=== PATIENT | female | born 1970 | race Caucasian/White ===

== ENCOUNTER 2021-03-10 20:22 | Emergency (ER) | payer BC, SELFPAY ==
--- NOTE | ~2021-03-10 | CT_ITS ---
EXAMINATION: CT brain wo [facility] EXAM DATE: 03/10/2021 20:31 INDICATION: Altered mental status. TECHNIQUE: Spiral CT of the head was performed without contrast. Axial, coronal and sagittal images were reviewed. The dose-length product (DLP) for this examination was 605.33 mGy-cm. The exposure w as tailored according to patient size, and iterative reconstruction (ASIR) was used as additional dos e reduction technique. There is no prior study for comparison. FINDINGS: Small old right periventricular, and right parietal and right occipital lobe infarctions. T here is no acute intraparenchymal hemorrhage. No evidence of intraparenchymal brain mass lesion. No evidence of acute infarction. There is no mass effect or midline shift. The ventricles are normal in size. There are no extra-axial collections. There are no acute calvarial fractures. Patient has had bilateral ocular lens surgery. Soft tissue is unremarkable. The visualized sinuses and mastoid air cells are well aerated. IMPRESSION: 1. No acute intracranial findings. 2. Small right-sided infarctions which are likely chronic As per stroke protocol, I called these results to emergency room, discussed with Ginger Lagos MD at 03/10/2021 20:37 CDT . Reviewed, dictated and finalized at location A. IMPRESSION: 1. No acute intracranial findings. 2. Small right-sided infarctions which are likely chronic As per stroke protocol, I called these results to emergency room, discussed wit h Ginger Lagos MD at 03/10/2021 20:37 CDT .
--- NOTE | ~2021-03-10 | XR_ITS ---
EXAMINATION: XR chest 1V portable EXAM DATE: 03/10/2021 20:49 INDICATION: Hypertension. Slurred speech. TECHNIQUE: Portable AP frontal chest x-ray was obtained. There is no prior study for comparison. FINDINGS: The lungs are clear. There are no pleural effusions. The cardiomediastinal silhouette is within normal limits. There is no pneumothorax suspected. The bones and soft tissues are unremarkab le. Cardiac monitoring device. IMPRESSION: No acute cardiopulmonary findings. Reviewed, dictated and finalized at location A.
--- NOTE | 2021-03-10 20:25 | ECG_ITS ---
Measurements Intervals [place] Rate: 73 P: 35 DC: 139 QRS: 44 QRSD: 109 T: 31 QT: 428 QTc: 473 Interpretive Statements SINUS RHYTHM BASELINE ARTIFACT- II, III, V6 NORMAL ECG Electronically Signed On 03-11-2021 7:02:50 CDT by Gagan Aguilar D.O.
[2021-03-10 20:35] VITALS: BP 221/107; PULSE 112; RESP 25; TEMP 36.6; O2SAT 100
--- NOTE | 2021-03-10 20:39 | ED.NEUROSD ---
HPI - Neuro Symptoms/Deficit General Chief Complaint: Neuro Symptoms/Deficit Stated Complaint: Right sided numbness/weakness, dizzy, prev CVA Time Seen by Provider: 03/10/21 20:33 Source: patient and family Mode of arrival: ambulatory Limitations: no limitations History of Present Illness HPI Narrative: 50-year-old with a history of multiple CVAs here with complaints of sudden onset of facial numbness associated with headache. Patient states that she may be having another stroke. Patient states that she has 100% carotid occlusion on the right side and she is seeing the stroke specialist at [facility]. She is presently on aspirin and statin. She states that she sees to neurologist one at [facility] and stroke specialist at [facility]. Patient states that she was sitting on the couch and watching TV and started experiencing facial numbness. Onset (ago): minute(s) (30) Time: 20:00 Timing confirmed by: spouse Location: speech and right face Severity: moderate Quality: tingling Relieving factors: none Exacerbating factors: none On Anticoagulants: No Related Data Home Medications Medication Instructions Recorded Confirmed aspirin 81 mg tablet,delayed 81 mg PO DAILY 12/18/19 12/30/20 release atorvastatin 40 mg tablet 40 mg PO DAILY 12/18/19 12/30/20 amitriptyline 10 mg tablet 10 mg PO QPM tablet 07/24/20 12/30/20 Allergies Allergy/AdvReac Type Severity Reaction Status Date / Time Influenza Virus Vaccines Allergy Intermediate sob Verified 03/10/21 20:38 morphine Allergy Intermediate Hives Verified 03/10/21 20:38 Review of Systems Review of Systems: All systems reviewed & are unremarkable except as noted in HPI and below Constitutional: Constitutional: Reports no additional constitutional complaints Eyes: Eyes: Reports no additional eye complaints ENT: Reports system reviewed and no additional complaints, except as documented Cardiovascular: Cardiovascular: Reports no additional cardiovascular complaints Respiratory: Respiratory: Reports no additional respiratory complaints Gastrointestinal: Gastrointestinal: Reports no additional gastrointestinal complaints Musculoskeletal: Musculoskeletal: Reports no additional musculoskeletal complaints Neurologic: Reports as per HPI [facility] Past Medical History Medical History (Updated 03/10/21 @ 22:33 by Roman Fragoso MD) Breast tumor (~2019) benign, excised Carotid artery disease Cerebrovascular Moyamoya 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 Surgical History Surgical History H/O section (~2005) History of appendectomy (~1976) History of cataract surgery History of umbilical hernia repair mesh Hx of cholecystectomy (~2006) Family History Family History Grandparent Diabetes mellitus Mother Diabetes mellitus Depression Family history of glaucoma Hypertension Family history of malignant neoplasm of breast in first degree relative Sibling Depression Family history of glaucoma Family history of cardiovascular disease Carcinoma of colon Family history of coronary artery disease Father Hypertension Son Depression Other Family history of hypothyroidism Social History Social History Alcohol intake: current Exam Narrative: Exam Narrative: GENERAL: Well-appearing, well-nourished, and in no acute distress. HEAD: Normocephalic, atraumatic. EYES: PERRLA and EOMI. ENT: Nares clear, no rhinorrhea or epistaxis. Mucous membranes moist. Patient talks with lips closed. NECK: Supple. CHEST: Clear to auscultation. No respiratory distress. HEART: Regular rate and rhythm. No murmur heard. Normal peripheral pulses. ABDOMEN: Soft, nontender, nondistended, normal active bowel sounds. EXTREMITIES: Normal range
[2021-03-10 20:48] VITALS: O2SAT 100
[2021-03-10 20:50] VITALS: BP 183/74; PULSE 102; RESP 16; O2SAT 100
[2021-03-10 20:50] LABS: Basophils Percent Auto 0.4 % (0.2-1.2); Eosinophils Absolute Auto 0.1 K/mm3 (0-0.3); Hematocrit 38.8 % (37.0-47.0); Hemoglobin 12.7 g/dL (12.0-15.0); Immature Granulocyte Absolute 0.02 K/mm3 (0.00-0.031); Immature Granulocyte Percent A 0.2 % (0-0.5); Lymphocytes Absolute Auto 2.61 K/mm3 (0.9-3.2); Lymphocytes Percent Auto 31.4 % (18.3-44.2); Mean Corpuscular HGB Conc 32.7 g/dl (32-36); Mean Corpuscular Hemoglobin 29.2 pg (26-34); Mean Corpuscular Volume 89.2 fl (80-100); Mean Platelet Volume 10.7 fl (7.4-10.4); Monocytes Absolute Auto 0.4 K/mm3 (0.1-0.6); Neutrophils Absolute Auto 5.2 K/mm3 (1.3-6.7); Platelet Count Result 203 k/mm3 (150-375); Red Blood Count 4.35 M/mm3 (4.2-5.4); Red Cell Distribution Width 12.7 % (11.5-14.5); White Blood Count 8.3 K/mm3 (4.5-10.0)
[2021-03-10] MEDS: LORazepam INJ (*CRX) 2 MG/ML VIAL 0.5 MG IV PUSH (20:53)
[2021-03-10 20:59] LABS: INR 0.9; Prothrombin Time 12.9 Seconds (11.1-14.7)
[2021-03-10 21:00] LABS: Anion Gap 5 mmol/L (8-16); Blood Urea Nitrogen 13 mg/dL (7-17); Calcium 9.2 mg/dL (8.4-10.2); Carbon Dioxide 28 mmol/L (22-30); Chloride 104 mmol/L (98-107); Estimated CRCL calculation 103 ml/min; Estimated Glomerular Filt Rate > 60; Glucose 138 mg/dL (65-105); Potassium 3.9 mmol/L (3.4-5.0); Sodium 137 mmol/L (137-145)
[2021-03-10 21:27] LABS: Troponin I < 0.012 ng/mL (0.000-0.034)
[2021-03-10] MEDS: LABETALOL HCL INJ 100 MG/20 ML VIAL 20 MG IV PUSH (21:31)
[2021-03-10 21:32] VITALS: BP 135/61; PULSE 79; RESP 16; O2SAT 97
[2021-03-10 22:07] VITALS: BP 149/59; PULSE 71; RESP 16; O2SAT 95
[2021-03-10 23:35] VITALS: BP 143/89; PULSE 75; RESP 16; TEMP 36.6; O2SAT 96
== END 2021-03-10 23:36 | disposition home or self-care (01) ==
PROVIDERS: Emergency Medicine; Emergency Provider Family Medicine; PCP Family Medicine
DX: G45.9 Transient cerebral ischemic attack, unspecified (principal); I25.10 Atherosclerotic heart disease of native coronary artery without angina pectoris; Z79.82 Long term (current) use of aspirin; Z86.73 Personal history of transient ischemic attack (TIA), and cerebral infarction without residual deficits; I67.5 Moyamoya disease; Z98.49 Cataract extraction status, unspecified eye
CPT/HCPCS: 36415; 70450; 71045; 80048; 84484; 85025; 85610; 85730; 93005; 96374; 96375; 99284; J2060

== ENCOUNTER → 2021-06-23 03:22 | Outpatient (CLI) | payer BC, SELFPAY ==
[2021-06-24 01:23] LABS: SARS-CoV-2 RNA PCR Negative
== END ==
PROVIDERS: PCP Family Medicine
DX: Z01.812 Encounter for preprocedural laboratory examination (principal); Z20.822 Contact with and (suspected) exposure to COVID-19; G56.01 Carpal tunnel syndrome, right upper limb
CPT/HCPCS: C9803; U0003; U0005

== ENCOUNTER 2021-10-29 07:24 | Outpatient (RCR) | payer OTHER, SELFPAY ==
[2021-10-29 07:36] VITALS: BP 149/74; PULSE 82; RESP 20; TEMP 37.1; O2SAT 97
[2021-10-29] MEDS: diphenhydrAMINE HCl CAP 25 MG CAPSULE PO (07:41)
[2021-10-29] MEDS: FAMOTIDINE 20 MG TABLET PO (07:41)
[2021-10-29] MEDS: ACETAMINOPHEN 325 MG TABLET 650 MG PO (07:41)
== END 2021-10-29 17:00 ==
LOC: AMCINF 07:24
PROVIDERS: PCP Family Medicine; Visit Provider Internal Medicine Hematology & Oncology
DX: U07.1 COVID-19 (principal); I10 Essential (primary) hypertension; I25.10 Atherosclerotic heart disease of native coronary artery without angina pectoris
CPT/HCPCS: A9270; M0245; Q0245

== ENCOUNTER 2022-05-01 16:28 | Emergency (ER) | payer OTHER, SELFPAY ==
[2022-05-01] VITALS (14 sets, daily range): BP systolic 146–177; BP diastolic 78–117; PULSE 93–110; RESP 18–29; TEMP 36.6; O2SAT 94–97
--- NOTE | ~2022-05-01 | XR_ITS ---
XR chest 1V portable DATE: 05/01/2022 18:01 INDICATION: Shortness of breath. COVID positive. TECHNIQUE: PA upright chest on 05/01/2022 at 1754 hours COMPARISON: 03/10/2021 portable AP chest at 2049 hours FINDINGS: Electronic monitor device overlies the left medial chest. Normal heart size. No hilar or mediastinal enlargement. No pulmonary infiltrate or consolidation, ple ural effusion or pulmonary vascular congestion or pneumothorax. IMPRESSION: No active cardiopulmonary disease Reviewed, dictated and finalized at location A.
--- NOTE | ~2022-05-01 | CT_ITS ---
EXAMINATION: CTA chest PE protocol DATE: 05/01/2022 22:13 INDICATION: Shortness of breath and cough TECHNIQUE: Computed tomography angiography (CTA) of the chest was performed with 200 mL Omnipaque-350 intravenous contrast timed to evaluate the pulmonary arteries. Coronal maximum intensity projection 3D-reconstructions were created by the technologist. The dose-length product (DLP) was 1856.66 mGy-cm . Automated exposure control and iterative reconstruction technique were employed. COMPARISON: 05/25/2014 FINDINGS: The pulmonary arteries are well-opacified. There are acute pulmonary emboli in proximal bra nches of the right upper, middle, and lower lobes. There are also emboli and central branches of the left upper lobe, lingula, and left lower lobe. There is straightening of the interventricular septum of the heart. The lungs are free of acute opacities. No pleural effusion or pneumothorax. No patholog ically enlarged thoracic lymph nodes are identified. The heart size is normal. The liver is diffusely low in attenuation when compared with the spleen, consistent with hepatic steatosis. IMPRESSION: 1. Central pulmonary emboli involving all lobes of the lungs. Straightening of the interventricular s eptum of the heart could reflect right heart strain. These findings were discussed with Sadie irving PA-C in the Emergency Department at 2230 hours on 05/01/2022. Reviewed, dictated and finalized at location F. IMPRESSION: 1. Central pulmonary emboli involving all lobes of the lungs. Straightening of the interventricular septum of the heart could reflect right heart strain. Thes e findings were discussed with Sadie Horner PA-C in the Emergency Department at 2230 hours on 05/01/2022.
--- NOTE | 2022-05-01 16:37 | ECG_ITS ---
Measurements Intervals [place] Rate: 95 P: 59 TN: 164 QRS: 41 QRSD: 102 T: 64 QT: 383 QTc: 482 Interpretive Statements SINUS RHYTHM POSSIBLE LEFT ATRIAL ENLARGEMENT INCOMPLETE RIGHT BUNDLE BRANCH BLOCK BASELINE ARTIFACT- II, III, V6 BORDERLINE ECG Electronically Signed On 05-02-2022 7:46:35 CDT by Gagan Aguilar D.O.
[2022-05-01 20:36] LABS: Basophils Percent Auto 0.4 % (0.2-1.2); Eosinophils Absolute Auto 0.1 K/mm3 (0-0.3); Eosinophils Percent Auto 1.2 % (0-4.4); Hematocrit 43.2 % (37.0-47.0); Hemoglobin 13.8 g/dL (12.0-15.0); Immature Granulocyte Absolute 0.04 K/mm3 (0.00-0.031); Immature Granulocyte Percent A 0.4 % (0-0.5); Lymphocytes Absolute Auto 2.72 K/mm3 (0.9-3.2); Lymphocytes Percent Auto 28.3 % (18.3-44.2); Mean Corpuscular HGB Conc 31.9 g/dl (32-36); Mean Corpuscular Hemoglobin 28.8 pg (26-34); Mean Platelet Volume 11.2 fl (7.4-10.4); Monocytes Absolute Auto 0.6 K/mm3 (0.1-0.6); Monocytes Percent Auto 6.2 % (2.6-8.5); Neutrophils Absolute Auto 6.1 K/mm3 (1.3-6.7); Neutrophils Percent Auto 63.5 % (45.5-73.1); Platelet Count Result 210 k/mm3 (150-375); Red Cell Distribution Width 13.5 % (11.5-14.5); White Blood Count 9.6 K/mm3 (4.5-10.0)
--- NOTE | 2022-05-01 20:58 | ED.SOB ---
HPI - SOB/Dyspnea General Chief Complaint: Shortness of Breath/Dyspnea Stated Complaint: sob Time Seen by Provider: 05/01/22 20:13 Source: patient Mode of arrival: ambulatory Limitations: no limitations History of Present Illness HPI Narrative: Patient is a 51-year-old female who presents the ED with report of shortness of breath with exertion. Patient reports she was diagnosed with COVID-19 via positive home antigen test last Wednesday. She has been experiencing headache, nausea, muscle aches, fevers, cough, congestion since then. She has had intermittent moments of shortness of breath but not severe. Today, she reports she was walking up a flight of stairs when she became severely fatigued, short of breath, dizziness/lightheadedness. She states she had to stop at the top of the stairs and was gasping for breath at that time. She denies ever having shortness of breath like this before. She also reported having heaviness in her chest at that time, which has since persisted. She called her doctor about her symptoms and was referred to the ED for further evaluation. Patient also reports having mild increased BLE edema, but denies significant BLE pain, abdominal pain, vomiting. Related Data Home Medications Medication Instructions Recorded Confirmed aspirin 81 mg tablet,delayed 81 mg PO DAILY 12/18/19 10/29/21 release amitriptyline 10 mg tablet 10 mg PO QPM 07/24/20 10/29/21 amlodipine 5 mg tablet 5 mg PO DAILY 06/04/21 10/29/21 clopidogrel 75 mg tablet 75 mg PO DAILY 06/04/21 10/29/21 losartan 25 mg tablet 25 mg PO DAILY 06/04/21 10/29/21 rosuvastatin 20 mg tablet 20 mg PO DAILY 06/04/21 10/29/21 donepezil 5 mg tablet 5 mg PO DAILY 10/06/21 10/29/21 Allergies Allergy/AdvReac Type Severity Reaction Status Date / Time Influenza Virus Vaccines Allergy Intermediate sob Verified 05/01/22 22:44 morphine Allergy Intermediate Hives Verified 05/01/22 22:44 Review of Systems Review of Systems: CONSTITUTIONAL: Reports fever, fatigue. EYES: Denies visual changes. ENT: Reports rhinorrhea, congestion. CARDIOVASCULAR: Reports midsternal chest heaviness, BLE edema. RESPIRATORY: Reports cough and GARCIA. GASTROINTESTINAL: Reports nausea. Denies abdominal pain, vomiting, or diarrhea. MUSCULOSKELETAL: Denies back pain, joint pain, or myalgia. NEUROLOGIC: Reports MENA, dizziness, lightheadedness. Denies numbness, or weakness. All systems reviewed & are unremarkable except as noted in HPI and below PMFSH Past Medical History Medical History Breast tumor (~2018) benign, excised Carotid artery disease Cerebrovascular Moyamoya 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 Surgical History Surgical History H/O section (~2005) History of appendectomy (~1976) History of cataract surgery History of umbilical hernia repair mesh Hx of cholecystectomy (~2006) Family History Family History (Reviewed 10/06/21 @ 16:01 by Danuta Blair, [facility]) Grandparent Diabetes mellitus Mother Diabetes mellitus Depression Family history of glaucoma Hypertension Family history of malignant neoplasm of breast in first degree relative Sibling Depression Family history of glaucoma Family history of cardiovascular disease Carcinoma of colon Family history of coronary artery disease Father Hypertension Son Depression Other Family history of hypothyroidism Social History Social History (Updated 05/01/22 @ 21:03 by Sadie Horner PA-C) Smoking status: Never smoker Alcohol intake: current Exam Narrative: GENERAL: Well appearing, morbidly obese, non-toxic, in no acute distress. HEAD: Normocephalic, atraumatic. EYES: PERRL/EOMI, conjunctivae clear bilaterally. NECK: Supple. No adenopathy, no masses. RESPIRATORY: Airway patent, respirations nonlabored. Clear to auscultation bilaterally,
[2022-05-01 21:44] LABS: Alanine Aminotransferase 39 U/L (6-35); Albumin Level 4.6 g/dL (3.5-5.1); Alkaline Phosphatase 111 U/L (38-126); Anion Gap 11 mmol/L (8-16); Aspartate Amino Transferase 45 U/L (14-36); Bilirubin,Total 0.7 mg/dL (0.2-1.3); Blood Urea Nitrogen 13 mg/dL (7-17); Calcium 9.2 mg/dL (8.4-10.2); Carbon Dioxide 24 mmol/L (22-30); Chloride 104 mmol/L (98-107); Estimated CRCL calculation 105 ml/min; Estimated Glomerular Filt Rate > 60; Glucose 120 mg/dL (65-110); Potassium 4.2 mmol/L (3.4-5.0); Sodium 139 mmol/L (137-145)
--- NOTE | 2022-05-01 22:00 | PC.NURSE ---
Pt in CT
[2022-05-01] MEDS: ONDANSETRON INJ 4 MG/2 ML VIAL IV PUSH (22:34)
[2022-05-01] MEDS: HEPARIN SOD/D5W 100 UNITS/ML 25,000 UNITS/250 ML BAG 15 UNITS IV CONT (23:14)
[2022-05-01] MEDS: HEPARIN SODIUM 5,000 UNITS/ML VIAL 10000 UNITS IV PUSH (23:16)
[2022-05-01 23:36] LABS: Prothrombin Time 12.8 Seconds (11.1-14.7)
[2022-05-01 23:37] LABS: Partial Thromboplastin Time 22.9 SECONDS (22.3-36.8)
[2022-05-02] VITALS (7 sets, daily range): BP systolic 122–175; BP diastolic 55–105; PULSE 86–102; RESP 18; O2SAT 93–96
[2022-05-02 00:06] LABS: SARS-CoV-2 RNA PCR Negative
[2022-05-02 05:11] LABS: Basophils Percent Auto 0.5 % (0.2-1.2); Eosinophils Absolute Auto 0.1 K/mm3 (0-0.3); Eosinophils Percent Auto 1.4 % (0-4.4); Hematocrit 38.3 % (37.0-47.0); Hemoglobin 12.4 g/dL (12.0-15.0); Immature Granulocyte Absolute 0.04 K/mm3 (0.00-0.031); Immature Granulocyte Percent A 0.5 % (0-0.5); Lymphocytes Absolute Auto 2.86 K/mm3 (0.9-3.2); Lymphocytes Percent Auto 38.8 % (18.3-44.2); Mean Corpuscular HGB Conc 32.4 g/dl (32-36); Mean Corpuscular Hemoglobin 28.8 pg (26-34); Mean Corpuscular Volume 88.9 fl (80-100); Mean Platelet Volume 9.9 fl (7.4-10.4); Monocytes Absolute Auto 0.5 K/mm3 (0.1-0.6); Monocytes Percent Auto 6.2 % (2.6-8.5); Neutrophils Absolute Auto 3.9 K/mm3 (1.3-6.7); Neutrophils Percent Auto 52.6 % (45.5-73.1); Platelet Count Result 211 k/mm3 (150-375); Red Blood Count 4.31 M/mm3 (4.2-5.4); Red Cell Distribution Width 13.5 % (11.5-14.5); White Blood Count 7.4 K/mm3 (4.5-10.0)
[2022-05-02 05:22] LABS: Partial Thromboplastin Time 55.7 SECONDS (22.3-36.8)
--- NOTE | 2022-05-02 06:24 | PC.NURSE ---
ETA for [facility] to transport to [facility] room 6611 is 0800
[2022-05-02] MEDS: HEPARIN SODIUM 5,000 UNITS/ML VIAL 3500 UNITS IV PUSH (06:38)
== END 2022-05-02 07:11 | disposition short-term general hospital (02) ==
PROVIDERS: Emergency Medicine; Physician Assistant; Emergency Provider Emergency Medicine; PCP Family Medicine
DX: I51.9 Heart disease, unspecified (principal); I26.94 Multiple subsegmental thrombotic pulmonary emboli without acute cor pulmonale; I25.10 Atherosclerotic heart disease of native coronary artery without angina pectoris; Z20.822 Contact with and (suspected) exposure to COVID-19
CPT/HCPCS: 36415; 71045; 71275; 80053; 81025; 84484; 85025; 85610; 85730; 93005; 96365; 96366; 96367; 96375; 99285; C9803; J0131; J1644; J2405; Q9967; U0003; U0005

== ENCOUNTER 2022-05-27 18:25 | Emergency (ER) | payer OTHER, SELFPAY ==
--- NOTE | 2022-05-27 18:23 | PC.NURSE ---
Addendum entered by Tamia Arauz RN 05/27/22 19:25: CORRECTION LEFT TIBIA Original Note: CPR IN PROGRESS. IO PLACED R TIBIA BY ANA Sahni RN
--- NOTE | 2022-05-27 18:29 | PC.NURSE ---
20MG ETOMIDATE 100MG SUCC GIVEN
--- NOTE | 2022-05-27 18:29 | PC.NURSE ---
DR CLAIRE, DR FELICIANO, LAUREL MLAIK [employer] DIRECTOR AND MIKIE HO AT BEDSIDE TO ASSIST WITH CODE AND TO ATTEMPT WITH INTUBATION
--- NOTE | 2022-05-27 18:31 | PC.NURSE ---
100MG SUCC REPEAT DOSE GIVEN EPI 1AMP GIVEN
--- NOTE | 2022-05-27 18:32 | PC.NURSE ---
7.5 ETT 23 AT [facility] BY MIKIE HO
--- NOTE | 2022-05-27 18:33 | PC.NURSE ---
NO PULSE WITH PULSE CHECK CPR RESUMED
--- NOTE | 2022-05-27 18:34 | PC.NURSE ---
2ND EPI AMP GIVEN PULSE CHECK NO PULSE CPR RESUMED
--- NOTE | 2022-05-27 18:36 | PC.NURSE ---
?HEART RATE NOTED ON DOPPLER. UNABLE TO PALPATE. CPR RESUMED.
--- NOTE | 2022-05-27 18:38 | PC.NURSE ---
3RD EPI GIVEN
--- NOTE | 2022-05-27 18:38 | PC.NURSE ---
PULSE CHECK NO PULSE, CPR RESUMED.
--- NOTE | 2022-05-27 18:40 | PC.NURSE ---
1AMP BICARB GIVEN. CPR CONTINUES
--- NOTE | 2022-05-27 18:41 | PC.NURSE ---
PEA NOTED CPR RESUMED
--- NOTE | 2022-05-27 18:42 | PC.NURSE ---
4TH EPI GIVEN
--- NOTE | 2022-05-27 18:43 | PC.NURSE ---
CPR HELD, NO PULSE CPR RESUMED.
--- NOTE | 2022-05-27 18:45 | PC.NURSE ---
5TH EPI GIVEN CPR CONTINUES. FAMILY AT BEDSIDE
--- NOTE | 2022-05-27 18:47 | PC.NURSE ---
FAMILY REPORTS THAT PT HAS KNOWN PULMONARY EMBOLI TO BOTH LUNGS. WAS AT [facility]. PRESCRIBED XARELTO. C/O SEVERE SHORTNESS OF BREATH PRIOR TO EMS ARRIVAL.
--- NOTE | 2022-05-27 18:49 | PC.NURSE ---
CPR HELD, PEA NO PULSE. CPR RESUMED. 6TH EPI GIVEN
[2022-05-27 18:50] LABS: Glucose Point of Care 233 mg/dl (65-105)
--- NOTE | 2022-05-27 18:50 | PC.NURSE ---
2ND BICARB GIVEN
--- NOTE | 2022-05-27 18:51 | PC.NURSE ---
NO PULSE. PEA NOTED. CPR RESUMED.
--- NOTE | 2022-05-27 18:52 | PC.NURSE ---
7TH EPI GIVEN
--- NOTE | 2022-05-27 18:55 | PC.NURSE ---
CPR HELD, NO PULSE, PEA NOTED. CPR RESUMED
--- NOTE | 2022-05-27 18:56 | PC.NURSE ---
8TH EPI GIVEN, CPR HELD, NO PULSE, PEA NOTED. CPR RESUMED
--- NOTE | 2022-05-27 18:58 | PC.NURSE ---
PULSE CHECK, NO PULSE, PEA CONTINUES. CPR RESUMED
--- NOTE | 2022-05-27 18:59 | PC.NURSE ---
9TH EPI GIVEN
--- NOTE | 2022-05-27 19:00 | PC.NURSE ---
CPR HELD, NO PULSE, PEA CONT. CPR RESUMED
--- NOTE | 2022-05-27 19:01 | PC.NURSE ---
CPR PAUSED. NO PULSE, PEA CONTINUES. CPR RESUMED.
--- NOTE | 2022-05-27 19:03 | PC.NURSE ---
10TH EPI GIVEN
--- NOTE | 2022-05-27 19:04 | PC.NURSE ---
CPR PAUSED. NO PULSE, PEA NOTED, CPR RESUMED.
--- NOTE | 2022-05-27 19:07 | PC.NURSE ---
@[id number] CODE WAS CALLED BY DR FELICIANO. FAMILY AWARE
--- NOTE | 2022-05-27 19:18 | ED.SOB ---
HPI - SOB/Dyspnea General Chief Complaint: Cardiac Arrest/CPR Stated Complaint: SOB, CP, ANXIOUS Time Seen by Provider: 05/27/22 18:42 Source: patient, EMS and old records reviewed Mode of arrival: EMS Limitations: clinical condition History of Present Illness HPI Narrative: 51 years old white female brought to the emergency room from home by ambulance because of gradual increase of shortness of breath over the last 48 hours, got worse prior to arrival to the emergency room. While moving the patient to bed she stopped breathing and had no pulse, CPR started immediately and CODE BLUE was announced. Patient came to our emergency room on May 01, 2022 and had shortness of breath at that time, CTA pulmonary showed Central pulmonary emboli involving all lobes of the lungs. Straightening of the interventricular septum of the heart indicating right heart strain. Patient was transferred to [facility] at that day, was discharged on Xarelto according to her . Patient is also on aspirin and Plavix. The reported that patient been having shortness of breath since May, mainly with exertion and gradually got worse over time. Related Data Home Medications Medication Instructions Recorded Confirmed aspirin 81 mg tablet,delayed 81 mg PO DAILY 12/18/19 10/29/21 release amitriptyline 10 mg tablet 10 mg PO QPM 07/24/20 10/29/21 amlodipine 5 mg tablet 5 mg PO DAILY 06/04/21 10/29/21 clopidogrel 75 mg tablet 75 mg PO DAILY 06/04/21 10/29/21 losartan 25 mg tablet 25 mg PO DAILY 06/04/21 10/29/21 rosuvastatin 20 mg tablet 20 mg PO DAILY 06/04/21 10/29/21 donepezil 5 mg tablet 5 mg PO DAILY 10/06/21 10/29/21 Allergies Allergy/AdvReac Type Severity Reaction Status Date / Time Influenza Virus Vaccines Allergy Intermediate sob Verified 05/18/22 15:53 morphine Allergy Intermediate Hives Verified 05/18/22 15:53 Review of Systems Review of Systems: ROS unobtainable: Yes unobtainable due to medical condition PMFSH Past Medical History Medical History (Updated 05/27/22 @ 21:34 by Vicki El MD) Breast tumor (~2019) benign, excised Carotid artery disease Cerebrovascular Moyamoya 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 Pulmonary embolism Surgical History Surgical History H/O section (~2005) History of appendectomy (~1976) History of cataract surgery History of umbilical hernia repair mesh Hx of cholecystectomy (~2006) Family History Family History Grandparent Diabetes mellitus Mother Diabetes mellitus Depression Family history of glaucoma Hypertension Family history of malignant neoplasm of breast in first degree relative Sibling Depression Family history of glaucoma Family history of cardiovascular disease Carcinoma of colon Family history of coronary artery disease Father Hypertension Son Depression Other Family history of hypothyroidism Social History Social History Smoking status: Never smoker Alcohol intake: current Exam Narrative: Patient arrived to the ED, moaning and gasping for air, once moved out of the ambulance stretcher to bed became unresponsive, pulseless, cyanotic from the chest all the way to the face. CPR started immediately, IO right lower leg, intubation, CPR protocol applied. Const: Nutritional Appearance: obese Other: Unresponsive, pulseless, cyanotic chest and face HENMT: Ears: external ears normal General nose exam: Normal external nose present Face and sinus: normal facial exam Teeth and gingiva: dentition normal Throat: posterior oropharynx normal Eyes: Conjunctivae: conjunctivae normal Direct Ophthalmoscopy: no photophobia Other: Pupils are wide, dilated, not reactive to light Neck: Neck: normal visual inspection Chest: Other: No
--- NOTE | 2022-05-27 21:57 | PC.NURSE ---
PT'S [place] RING SET REMOVED AND GIVEN TO PT'S AT APPROXIMATELY 2100 PER FAMILY REQUEST.
[2022-05-28 07:52] LABS: Device AMBU BAG; Fractional Inspired Oxygen 100 %; HCO3 VBG 11.8 mEq/l (24.0-30.0); PCO2 VBG 55.2 mmHg (42.0-48.0); PO2 VBG 64.2 mmHg (35.0-45.0); pH VBG 6.949 (7.300-7.400)
== END 2022-05-27 19:07 | disposition expired ==
PROVIDERS: Emergency Provider Emergency Medicine; PCP Family Medicine
DX: I46.9 Cardiac arrest, cause unspecified (principal); Z86.711 Personal history of pulmonary embolism; Z86.16 Personal history of COVID-19; Z79.01 Long term (current) use of anticoagulants; I25.10 Atherosclerotic heart disease of native coronary artery without angina pectoris
CPT/HCPCS: 31500; 32556; 82803; 82948; 92950; 96374; 96375; 99285; C1751; J0171; J0330; J3475; J7030; J7120